=== PATIENT | female | born 1980 | race Caucasian/White ===

== ENCOUNTER → 2020-10-21 15:24 | Outpatient (CLI) | payer BC, MEDICAID, SELFPAY ==
--- NOTE | ~2020-10-21 | MM_ITS ---
EXAMINATION: MM screening elvira BI w ronna HISTORY: Screening TECHNIQUE: Craniocaudal and mediolateral oblique 3-D tomosynthesis images were obtained and synthetic 2-D images were generated. CAD analysis was submitted and interpreted. COMPARISON: No prior mammogram is available for comparison at this institution. BREAST PARENCHYMAL COMPOSITION: The breasts are heterogenously dense, which may obscure small masses. FINDINGS: There is focal asymmetry in the upper central aspect of the right breast anteriorly. There is no mammographic evidence for malignancy in the left breast. IMPRESSION: 1. Focal right breast asymmetry. 2. Additional mammographic views and possible breast ultrasound are recommended. BI-RADS Category 0: Incomplete: Needs additional imaging evaluation. Reviewed, dictated and finalized at location A. 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 Focal right breast asymmetry. 2. Additional mammographic views and possible breast ultrasound are recommended . BI-RADS Category 0: Incomplete: Needs additional imaging evaluation.
== END ==
PROVIDERS: Visit Provider Nurse Practitioner Obstetrics & Gynecology
DX: Z12.31 Encounter for screening mammogram for malignant neoplasm of breast (principal); R92.8 Other abnormal and inconclusive findings on diagnostic imaging of breast
CPT/HCPCS: 77063; 77067

== ENCOUNTER → 2020-11-25 14:09 | Outpatient (CLI) | payer BC, MEDICAID, SELFPAY ==
--- NOTE | ~2020-11-25 | MMUS_ITS ---
EXAMINATION: MM diagnostic elvira RT w ronna, US breast RT complete HISTORY: Upper central anterior right breast focal asymmetry reported on 10/21/2020 screening mammogram TECHNIQUE: Additional 3-D tomosynthesis images of the right breast were performed and synthetic 2-D i mages were generated. CAD analysis was submitted and interpreted. High resolution complete right krishna st ultrasound was performed. COMPARISON: 10/21/2020 bilateral digital screening mammogram FINDINGS: MAMMOGRAPHIC FINDINGS: No suspicious mass, architectural distortion, malignant calcification, skin thickening or retraction is evident. ULTRASOUND: No suspicious mass or shadowing or other significant sonographic abnormality is noted. IMPRESSION: 1. No mammographic evidence of malignancy 2. Routine annual mammographic screening is recommended BI-RADS Category 1: Negative Reviewed, dictated and finalized at location A. IMPRESSION: 1. No mammographic evidence of malignancy 2. Routine annual mammographic screening is recommended BI-RADS Category 1: Negative
== END ==
PROVIDERS: Visit Provider Nurse Practitioner Obstetrics & Gynecology
DX: R92.8 Other abnormal and inconclusive findings on diagnostic imaging of breast (principal)
CPT/HCPCS: 76641; 77061; 77065; G0279